=== PATIENT | female | born 1995 | race Caucasian/White ===

== ENCOUNTER 2022-07-05 05:27 | Emergency (ER) | payer OTHER, SELFPAY ==
[2022-07-05 05:36] VITALS: BP 144/78; PULSE 106; RESP 20; TEMP 36.7; O2SAT 92; BMI 25.8
[2022-07-05 05:55] LABS: Hemoglobin 12.8 g/dl (12.0-16.0); Mean Corpuscular HGB Conc 33.7 g/dl (31.0-35.0); Mean Platelet Volume 10.2 fL (9.4-12.3); Platelet Count 281 X10*3/uL (160-400); Red Blood Count 4.27 X10*6/uL (4.20-5.50); Red Cell Distribution Width 12.9 % (11.0-16.0); White Blood Count 9.1 X10*3/uL (4.8-10.8)
[2022-07-05 06:05] LABS: COVID-19 Test Negative (Negative)
[2022-07-05 06:08] LABS: Alanine Aminotransferase 14 U/L (0-31); Albumin Level 4.5 g/dL (3.5-5.0); Alkaline Phosphatase 85 U/L (39-117); Anion Gap 17 (12-20); Aspartate Amino Transferase 14 U/L (5-31); Bilirubin Total 0.5 mg/dL (0.0-1.0); Blood Urea Nitrogen 8 mg/dL (9-16); Calcium 9.3 mg/dL (8.4-10.2); Carbon Dioxide 20 mmol/L (22-29); Chloride 107 mmol/L (96-108); Creatinine Clr Calc Pharmacy 106.8; Estimated Glomerular Filt Rate > 60; Glucose Random 108 mg/dL (60-115); Potassium 3.7 mmol/L (3.3-5.1); Sodium 140 mmol/L (135-145); Total Protein 7.7 g/dL (6.5-8.0)
[2022-07-05 08:46] VITALS: BP 124/64; PULSE 73; RESP 18; TEMP 36.4; O2SAT 98
--- NOTE | 2022-07-05 08:55 | ED.GENADULT ---
HPI - General Adult General Chief complaint: General Medical Stated complaint: n/v, hasnt taken anti depressants Time Seen by Provider: 07/05/22 08:44 Source: patient Mode of arrival: ambulatory Limitations: no limitations History of Present Illness HPI narrative: Patient presents emergency department for evaluation of nausea vomiting and left upper abdominal/epigastric pain. She states symptom onset was 3 days ago, denies eating any different foods, following doubtful restaurant prior to her symptom onset. She reports an assistive agree and collar. Reportedly vomiting small amounts 3-4 times daily. She is able to eat and drink, but typically will vomit 2-4 hours after eating. She states that she thinks this is secondary to stopping her antidepressant, mirtazapine, 1 month ago. She has an appointment next week to review again the mirtazapine. She denies possibility of , last menstrual period 06/27/2022. Denies fevers, chills, lower abdominal pain, dysuria, urinary frequency/urgency/hesitancy. Related Data Previous Rx's Medication Instructions Recorded cefuroxime axetil 250 mg tablet 250 mg PO Q12H 7 days #14 tabs 07/05/22 omeprazole 20 mg capsule,delayed 20 mg PO DAILY #14 caps 07/05/22 release ondansetron 4 mg disintegrating 4 mg PO Q8H PRN nausea and 07/05/22 tablet vomiting #10 tabs Allergies Allergy/AdvReac Type Severity Reaction Status Date / Time No Known Allergies Allergy Unverified 07/19/20 18:13 Review of Systems Review of Systems: Constitutional : No Weight loss, No Fever, No Chills ENT/Mouth :? No sore throat, No Rhinorrhea Eyes: No Swelling, No Redness Cardiovascular : No Chest Pain, No SOB, No Edema Respiratory : No Cough, No Sputum, No Wheezing Gastrointestinal : Positive Nausea, Positive Vomiting, no Diarrhea, positive abdominal pain, No Hematochezia, No Melena Genitourinary : No Dysuria, No Urinary Frequency, No Hematuria, No Urgency? Musculoskeletal : No joint pain, No Myalgias, No Joint Swelling Skin : No Skin Lesions, No rash Neuro : No Weakness, No Numbness, No Dizziness, No Headache Psych : No Anxiety/Panic, No Depression Heme/Lymph: No Bruising, No Lymphadenopathy Endocrine : No Polyuria, No Polydipsia Yes all other systems are reviewed and are negative [facility] Past Medical History Attestation statement: The following information was validated with the patient. Source: old records reviewed Social History Social History Alcohol intake: never Patient Tobacco Use Status: Current everyday Tobacco user Use of substances other than those prescribed or required for medical reasons: No Advance Directives: No Advance Directives Information Provided: No Patient : No Physical Exam ED Vital Signs: Vital Signs - 24 hr 07/05/22 05:36 07/05/22 08:46 Temperature 98.0 F 97.5 F Pulse Rate 106 H 73 Respiratory Rate 20 18 Blood Pressure 144/78 H 124/64 Pulse Oximetry 92 98 Oxygen Delivery Method Room Air Room Air BMI result Body Mass Index 25.8 Appearance: Alert.?Oriented to person, place and time. No acute distress.?Normal affect. Eyes: Pupils equal, round and reactive to light.? ENT: Pharynx normal.?? Neck: Normal inspection.? Neck supple.?? CVS: Heart sounds normal. Normal heart rate and rhythm.? Pulses normal.?? Respiratory: No respiratory distress.? Lung sounds clear to auscultation bilaterally?? Abdomen: Soft with epigastric and left upper quadrant tenderness. Rae sign negative. Normoactive bowel sounds. No pulsatile mass.?? Skin: Skin warm and dry.? Normal skin color.? ? Extremities: No lower extremity edema.? Neuro: Moves all extremities spontaneously. Sensation intact bilaterally. Motor deficits Ambulates with normal steady gait. Course Course Course Narrative: Patient is a 26-year-old female with a past medical history of anxiety and depression presents emergency department for evaluation nausea and vomiting x3 days with associated abdominal pain. Upon physical exam she appears uncomfortable, vital signs however stable afebrile, no tachycardia. Will obtain CBC to evaluate for leukocytosis/ anemia, CMP and lipase to evaluate for abnormal electrolytes /abnormal renal function/ abnormal hepatic/biliary function, Urinalysis and urine test. Will trial 1 L normal saline, Zofran for nausea, pepcid IV and follow with GI cocktail. Reevaluation(s) Reevaluation #1: CBC and CMP are unremarkable. Urinalysis reveals moderate leuk esterase with urine wbc's and 4+ bacteria. Patient without any genitourinary symptoms, discussed these findings with patient, recommend treatment for urinary tract infection with antibiotics at this time as this may be a cause for her nausea/vomiting. However, cannot completely exclude duodenal ulcer, as she has nausea/vomiting/left upper quadrant/epigastric pain that is particularly worsened 2-4 hours after eating. She did have relief of symptoms with GI cocktail while in the emergency department. I discussed both of these with patient, discussed plan of care for discharge home with antibiotics, as well as omeprazole x2 weeks. Will provide Zofran as needed for nausea. Advised to contact her primary care provider and arrange for a follow-up visit within 3 days. Reviewed worrisome signs and symptoms to return back to the emergency department for. All questions were answered, patient was discharged home in stable condition. Medical Decision Making Medical Records Medical records reviewed: Yes I reviewed the patient's medical records. Lab Data Lab results reviewed: Yes I reviewed the patient's lab results. Result diagrams: 07/05/22 05:47 07/05/22 05:47 Labs: Lab Results 07/05/22 07/05/22 07/05/22 Range/Units 05:47 05:47 05:47 WBC 9.1 (4.8-10.8) X10*3/uL RBC 4.27 (4.20-5.50) X10*6/uL Hgb 12.8 (12.0-16.0) g/dl Hct 38.0 (37.0-47.0) % MCV 89.0 (80.0-98.0) fL MCH 30.0 (27.0-33.0) pg MCHC 33.7 (31.0-35.0) g/dl RDW 12.9 (11.0-16.0) % Plt Count 281 (160-400) X10*3/uL MPV 10.2 (9.4-12.3) fL Absolute Nucleated RBC 0.000 (0.0-0.012) X10*3/uL Nucleated RBC % (auto) 0.0 (0.0-0.2) /100WBC Sodium 140 (135-145) mmol/L Potassium 3.7 (3.3-5.1) mmol/L Chloride 107 (96-108) mmol/L Carbon Dioxide 20 L (22-29) mmol/L Anion Gap 17 (12-20) BUN 8 L (9-16) mg/dL Creatinine 0.80 (0.5-1.4) mg/dL Estim Creat Clear Calc 106.8 Estimated GFR > 60 Random Glucose 108 (60-115) mg/dL Calcium 9.3 (8.4-10.2) mg/dL Total Bilirubin 0.5 (0.0-1.0) mg/dL AST 14 (5-31) U/L ALT 14 (0-31) U/L Alkaline Phosphatase 85 (39-117) U/L Total Protein 7.7 (6.5-8.0) g/dL Albumin 4.5 (3.5-5.0) g/dL Lipase 5 L (8-78) U/L Urine Color Urine Appearance Urine pH (5.0-9.0) Ur Specific [place] (1.005-1.025) Urine Protein (Neg-Trace) mg/dL Urine Glucose (UA) (Negative) mg/dL Urine Ketones (Negative) mg/dL Urine Blood (Negative) Urine Nitrite (Negative) Ur Leukocyte Esterase (Negative) Urine RBC (0-2) /HPF Urine WBC (0-5) /HPF Ur Squamous Epith Cells (0-2) /HPF Urine Bacteria (None Seen) Hyaline Casts (0-2) /LPF Urine Test (NEGATIVE) COVID-19 ([facility]) Negative (Negative) COVID-19 Clin Com See Note 07/05/22 07/05/22 Range/Units 09:13 09:13 WBC (4.8-10.8) X10*3/uL RBC (4.20-5.50) X10*6/uL Hgb (12.0-16.0) g/dl Hct (37.0-47.0) % MCV (80.0-98.0) fL MCH (27.0-33.0) pg MCHC (31.0-35.0) g/dl RDW (11.0-16.0) % Plt Count (160-400) X10*3/uL MPV (9.4-12.3) fL Absolute Nucleated RBC (0.0-0.012) X10*3/uL Nucleated RBC % (auto) (0.0-0.2) /100WBC Sodium (135-145) mmol/L Potassium (3.3-5.1) mmol/L Chloride (96-108) mmol/L Carbon Dioxide (22-29) mmol/L Anion Gap (12-20) BUN (9-16) mg/dL Creatinine (0.5-1.4) mg/dL Estim Creat Clear Calc Estimated GFR Random Glucose (60-115) mg/dL Calcium (8.4-10.2) mg/dL Total Bilirubin (0.0-1.0) mg/dL AST (5-31) U/L ALT (0-31) U/L Alkaline Phosphatase (39-117) U/L Total Protein (6.5-8.0) g/dL Albumin (3.5-5.0) g/dL Lipase (8-78) U/L Urine Color Dark Yellow Urine Appearance Cloudy Urine pH 5.5 (5.0-9.0) Ur Specific [place] >= 1.030 H (1.005-1.025) Urine Protein Trace (Neg-Trace) mg/dL Urine Glucose (UA) Negative (Negative) mg/dL Urine Ketones >=160 (Negative) mg/dL Urine Blood Trace H (Negative) Urine Nitrite Negative (Negative) Ur Leukocyte Esterase Moderate (2+) H (Negative) Urine RBC 3-5 H (0-2) /HPF Urine WBC 11-20 H (0-5) /HPF Ur Squamous Epith Cells >20 (0-2) /HPF Urine Bacteria 4+ (None Seen) Hyaline Casts 3-5 (0-2) /LPF Urine Test NEGATIVE (NEGATIVE) COVID-19 ([facility]) (Negative) COVID-19 Clin Com Discharge Plan Discharge Clinical Impression: Urinary tract infection, Nausea and vomiting Patient Disposition: Home, Self-Care Instructions: Urinary Tract Infection in Women (ED), Acute Nausea and Vomiting (ED), Acute Abdominal Pain (ED) Additional Instructions: As we discussed, your symptoms may be related to possible urinary tract infection despite no urinary symptoms. You have been given an antibiotic, please complete this entire course of antibiotics. Take this approximately 1 hour after eating Additionally, as we discussed it is possible make you may have a duodenal ulcer, which can typically cause pain with nausea and vomiting a few hours after eating. You have been given a prescription for omeprazole to take daily for 2 weeks, take 30 minutes prior to first meal of the day. Use Zofran as needed for nausea/vomiting. Please contact your primary care provider and arrange for a follow-up visit within 3 days. Return to the emergency department any new or worsening symptoms or concerns. Prescriptions: New omeprazole 20 mg capsule,delayed release(DR/EC) 20 mg PO DAILY Qty: 14 0RF cefuroxime axetil 250 mg tablet 250 mg PO Q12H 7 Days Qty: 14 0RF ondansetron 4 mg tablet,disintegrating 4 mg PO Q8H PRN (Reason: nausea and vomiting) Qty: 10 0RF
[2022-07-05 09:22] LABS: Appearance Urine Cloudy; Color Urine Dark Yellow; Glucose Urine UA Negative (Negative); Leukocyte Esterase Urine Moderate (2+) (Negative); Nitrite Urine Negative (Negative); PH 5.5 (5.0-9.0); Specific Gravity - Urine >= 1.030 (1.005-1.025); Urine Blood Trace (Negative); Urine Ketones >=160 mg/dL (Negative); Urine Protein Trace mg/dL (Neg-Trace)
[2022-07-05 09:24] LABS: UPreg QC Valid YES; Urine Pregnancy NEGATIVE (NEGATIVE)
[2022-07-05 09:27] LABS: Bacteria Urine 4+ (None Seen); Squamous Epithelial Cell Urine >20 /HPF (0-2)
[2022-07-05 09:29] LABS: Lipase 5 U/L (8-78)
[2022-07-05] MEDS: 0.9 % Sodium Chloride 1,000 ML 999 ML IV (10:21)
[2022-07-05] MEDS: Ketorolac Tromethamine 30 MG/ML VIAL IVPUSH (10:21)
[2022-07-05] MEDS: ondansetron HCL 4 MG/2 ML VIAL IVPUSH (10:21)
[2022-07-05] MEDS: Famotidine/PF 20 MG/2 ML VIAL IVPUSH (10:22)
[2022-07-05 11:16] VITALS: BP 125/63; PULSE 73; RESP 15; O2SAT 98
[2022-07-05] MEDS: Lidocaine HCl Viscous 2 % 15 ML SOLUTION MUCOUS MEM (11:18)
[2022-07-05] MEDS: Magnesium Hydrox/Alum Hydrox 30 ML ORAL.SUSP PO (11:18)
== END 2022-07-05 11:30 | disposition home or self-care (01) ==
PROVIDERS: Nurse Practitioner Family; Emergency Provider Emergency Medicine
DX: R11.2 Nausea with vomiting, unspecified (principal); N39.0 Urinary tract infection, site not specified; B95.1 Streptococcus, group B, as the cause of diseases classified elsewhere; Z20.822 Contact with and (suspected) exposure to COVID-19; F17.200 Nicotine dependence, unspecified, uncomplicated
CPT/HCPCS: 80053; 81001; 81025; 83690; 85027; 87086; 87147; 87635; 96374; 96375; 99284; J1885; J2405

== ENCOUNTER 2022-07-06 02:37 | Emergency (ER) | payer OTHER, SELFPAY ==
[2022-07-06 03:11] VITALS: BP 126/62; PULSE 103; RESP 20; TEMP 37.1; O2SAT 96; BMI 25.8
== END 2022-07-06 08:44 | disposition left against medical advice (07) ==
PROVIDERS: Emergency Provider Emergency Medicine
DX: R11.2 Nausea with vomiting, unspecified (principal); N39.0 Urinary tract infection, site not specified
CPT/HCPCS: 99281